=== PATIENT | male | born 1980 | race Caucasian/White ===

== ENCOUNTER 2016-09-01 04:50 | Emergency (ER) | payer BC, OTHER ==
[2016-09-01] MEDS ORDERED: Ketorolac Tromethamine 30 MG/ML VIAL ONE (04:55)
[2016-09-01] MEDS ORDERED: Ondansetron HCl/PF 4 MG/2 ML Vial ONE (04:59)
[2016-09-01] MEDS ORDERED: Fentanyl 100 MCG/2 ML VIAL ONE (05:01)
[2016-09-01 05:14] LABS: #Basophils 0.1 thou/uL (0.0-0.2); #Eosinphils 0.4 thou/uL (0.0-0.7); #Lymphocytes 3.7 thou/uL (1.20-3.40); #Monocytes 0.9 thou/uL (0.11-0.59); #Neutrophils 6.8 thou/uL (1.40-6.50); %Eosinophils 3.4 % (0.0-10.0); %Monocytes 7.3 % (0.0-10.0); Hematocrit 52.4 % (42.0-52.0); Mean Platelet Volume 6.2 fL (7.4-10.4); Red Blood Cell (RBC) Count 5.97 mill/uL (4.70-6.10); White Blood Cell (WBC) Count 11.9 thou/uL (4.8-10.8)
[2016-09-01 05:25] LABS: Anion Gap 14 mmol/L (10-20); BUN (Urea Nitrogen) 13 mg/dL (8.9-20.6); Calc. Creatinine Clearance 0 mL/min (70-130); Calcium 9.1 mg/dL (7.8-10.44); Carbon Dioxide 22 mmol/L (22-29); Chloride 108 mmol/L (98-107); Estimated GFR-MDRD 78
[2016-09-01] MEDS ORDERED: Dicyclomine HCl 20 mg/2 ml Ampule ONE (06:13)
--- NOTE | 2016-09-01 11:16 | CT ---
PRELIMINARY REPORT/[facility]/EMERGENCY AFTER-HOURS PROCEDURE: EXAM: CT Abdomen and Pelvis Without Intravenous Contrast. CLINICAL HISTORY: The patient is a 36 years male; Pain and signs and symptoms; Nausea; Abdominal pain; Localized; Righ t lower quadrant (rlq); Patient HX: Pt woke up from sleep with extreme pain to the right lower quad area. No surgical history. Pt states he had kidney stones before. ; TECHNIQUE: Axial computed tomography images of the abdomen and pelvis without intravenous contrast. Coronal reformatted images were created and reviewed. COMPARISON: No relevant prior studies available. FINDINGS: Lower thorax: No acute findings. ABDOMEN: Liver: Unremarkable. Gallbladder and bile ducts: No calcified stones. No ductal dilation. Pancreas: Unremarkable. No ductal dilation. Spleen: Unremarkable. No splenomegaly. Adrenals: Unremarkable. No mass. Kidneys and ureters: 5 mm distal right ureteral calculus near the UVJ with mild hydroureteronephrosi s. No additional urinary tract calculi seen. Stomach and bowel: Unremarkable. No obstruction. Appendix: No findings to suggest acute appendicitis. PELVIS: Bladder: Empty. No stones. Reproductive: Incidental note of high riding right testicle. ABDOMEN and PELVIS: Intraperitoneal space: No free fluid or fluid collection. No free air. Bones/joints: No acute fracture. No dislocation. Soft tissues: Unremarkable. Vasculature: Unremarkable. No abdominal aortic aneurysm. Lymph nodes: Unremarkable. No enlarged lymph nodes. IMPRESSION: 5 mm obstructing distal right ureteral calculus near the UVJ with mild hydroureteronephrosis. Thank you for allowing us to participate in the care of your patient. Dictated and Authenticated by: Riley Chaidez MD 09/01/2016 5:39 AM Central Time ([place] \T\ [place]) FINAL REPORT CT OF THE ABDOMEN AND PELVIS WITHOUT CONTRAST: DATE: 09/01/16. FINDINGS: Spiral CT of the abdomen and pelvis was done for evaluation of severe right lower quadrant pain. Th ere is a prior history of ureteral calculi. Axial slices were acquired without oral or IV contrast, then coronal reconstructions were done. There is, indeed, a calculus in the distal right ureter near the UVJ that measures about 6 x 4 mm. It is only causing very mild right hydronephrosis and hydroureter. No other major calculi are seen in the kidneys. No renal masses are appreciated within the limitations of a noncontrast study. The lung bases are clear. The liver, spleen, pancreas, adrenal glands, gallbladder, and abdominal a reuben all appear normal. The bowel is nondistended. There are no signs of obstruction or inflammatory changes around the bow el. The appendix appears normal. There is no free air or free fluid. CT of the pelvis shows no pelvic masses, fluid collections, or inflammatory changes. Of incidental note was a high-riding right testicle. IMPRESSION: A 6 x 4 mm distal right ureteral calculus causing very mild right hydronephrosis. Report in agreement with preliminary reading by [email or web address]. POS: HOME
== END 2016-09-01 06:23 | disposition short-term general hospital (02) ==
LOC: BURERS 04:50
DX: N13.2 Hydronephrosis with renal and ureteral calculous obstruction (principal); J45.909 Unspecified asthma, uncomplicated; F17.210 Nicotine dependence, cigarettes, uncomplicated
CPT/HCPCS: 74176; 80048; 85025; 96374; 96375; J1170; J1885; J2405; J3010

== ENCOUNTER 2016-09-05 21:39 | Emergency (ER) | payer BC ==
[2016-09-05] MEDS ORDERED: Fentanyl 100 MCG/2 ML VIAL ONE (21:56)
[2016-09-05] MEDS ORDERED: Ondansetron HCl/PF 4 MG/2 ML Vial ONE (21:57)
[2016-09-05] MEDS ORDERED: Ketorolac Tromethamine 30 MG/ML VIAL ONE (21:57)
[2016-09-05 22:09] LABS: #Lymphocytes 0.9 thou/uL (1.20-3.40); #Monocytes 0.5 thou/uL (0.11-0.59); #Neutrophils 11.5 thou/uL (1.40-6.50); %Basophils 0.2 % (0.0-1.0); %Monocytes 3.5 % (0.0-10.0); Hematocrit 48.1 % (42.0-52.0); Mean Platelet Volume 6.6 fL (7.4-10.4); White Blood Cell (WBC) Count 12.8 thou/uL (4.8-10.8)
[2016-09-05 22:25] LABS: ALT (SGPT) 37 U/L (0-55); AST (SGOT) 20 U/L (5-34); Alkaline Phosphatase 72 U/L (40-150); Anion Gap 14 mmol/L (10-20); BUN (Urea Nitrogen) 17 mg/dL (8.9-20.6); Bilirubin, Total 0.7 mg/dL (0.2-1.2); Calc. Creatinine Clearance 0 mL/min (70-130); Calcium 9.3 mg/dL (7.8-10.44); Carbon Dioxide 26 mmol/L (22-29); Chloride 105 mmol/L (98-107); Estimated GFR-MDRD 71
[2016-09-05 23:18] LABS: Blood, Urine Large (Negative); Glucose, Urine (Dipstick) 100 mg/dL (Negative); Ketone, Urine 15 mg/dL (Negative); Nitrite Positive (Negative); Protein, Urine (Dipstick) > or equal to 300 mg/dL (Neg-Trace)
[2016-09-05 23:19] LABS: Bilirubin Negative (Negative)
[2016-09-05 23:24] LABS: Bacteria/HPF Rare-Few HPF (None Seen); RBC/HPF GREATER THAN 50-TNTC HPF (0-3); Squamous Epithelial None Seen HPF (0-3); WBC/HPF 0-3 HPF (0-3)
== END 2016-09-05 23:34 | disposition home or self-care (01) ==
LOC: BURERS 21:39
DX: N23 Unspecified renal colic (principal); G89.18 Other acute postprocedural pain; J45.909 Unspecified asthma, uncomplicated; F17.210 Nicotine dependence, cigarettes, uncomplicated
CPT/HCPCS: 36415; 80053; 81003; 81015; 85025; 87086; 96361; 96374; 96375; J1885; J2405; J3010